=== PATIENT | male | born 1945 | race Caucasian/White ===

== ENCOUNTER 2019-04-20 13:26 | Inpatient (IN) | payer MEDICARE ==
[~2019-04-20 13:26] MED LIST: Aminocaproic Acid 5 GM/20 ML VIAL ONE; Calcium Chloride 1 GM/10 ML Abboject SYRINGE ONE; Cardioplegic Soln 1,000 ML BAG ONE; Esmolol 100 MG/10 ML VIAL ONE; Heparin 30,000 units/30 ml VIAL ONE; Heparin 5,000 UNITS/ML VIAL ONE; Iopamidol 370 76% 100 ML VIAL ONE; Iopamidol 370 76% 50 ML VIAL FS ONE; Lidocaine 2% PF 5 ML VIAL ONE; Magnesium Sulfate 1 GM/2 ML VIAL ONE; Norepinephrine 4 MG/4 ML VIAL ONE; Ondansetron PF 4 MG/2 ML Vial ONE; PHENYLEPHRINE-NS 100 MCG/ML 10 ML SYRINGE ONE; PROPOFOL 200 MG/20 ML VIAL ONE; Papaverine 60 MG/2 ML VIAL ONE; Potassium Chloride 60 MEQ/30 ML VIAL ONE; Protamine Sulfate 250 MG/25 ML VIAL ONE; Rocuronium Bromide 10 MG/ML (10ML VIAL) ONE; Sodium Bicarb 50 MEQ/50 ML Abboject 8.4% SYRINGE ONE; Thrombin 5000 UNITS/5 ML VIAL ONE; Vecuronium 10 MG VIAL ONE; ePHEDrine/0.9% NaCl/PF SYRINGE 50 mg/10 ml ONE
[2019-04-20 13:52] LABS: #Eosinphils 0.1 thou/uL (0.0-0.7); #Lymphocytes 2.2 thou/uL (1.20-3.40); #Monocytes 0.5 thou/uL (0.11-0.59); #Neutrophils 4.7 thou/uL (1.40-6.50); %Basophils 0.5 % (0.0-1.0); %Eosinophils 1.5 % (0.0-10.0); %Lymphocytes 29.2 % (21.0-51.0); %Neutrophils 61.9 % (42.0-75.0); Hemoglobin 17.1 g/dL (14.0-18.0); Mean Corpuscular HGB CONC 32.9 g/dL (32.0-36.0); Mean Corpuscular Hemoglobin 28.9 pg (27.0-31.0); Mean Corpuscular Volume 87.8 fL (78.0-98.0); Mean Platelet Volume 6.9 fL (7.4-10.4); Platelet Count 308 thou/uL (130-400); RBC Distribution Width 13.8 % (11.5-14.5); White Blood Cell (WBC) Count 7.5 thou/uL (4.8-10.8)
--- NOTE | 2019-04-20 14:12 | RAD ---
Portable chest: HISTORY: Chest pain COMPARISON: none FINDINGS: Lung grimes are clear. Heart and mediastinum appear unremarkable. Vascularity is normal. Visualized osseous structures unremarkable. IMPRESSION: No acute finding
[2019-04-20 14:14] LABS: ALT (SGPT) 25 U/L (8-55); AST (SGOT) 20 U/L (5-34); Albumin 4.4 g/dL (3.4-4.8); Alkaline Phosphatase 78 U/L (40-110); Anion Gap 12 mmol/L (10-20); BUN (Urea Nitrogen) 18 mg/dL (8.4-25.7); Bilirubin, Total 0.4 mg/dL (0.2-1.2); CK (CPK) 89 U/L (30-200); Calc. Creatinine Clearance 0 mL/min (70-130); Calcium 9.6 mg/dL (7.8-10.44); Carbon Dioxide 29 mmol/L (23-31); Chloride 102 mmol/L (98-107); Estimated GFR-MDRD 46; Globulin 2.7 g/dL (2.4-3.5); Glucose 167 mg/dL (83-110); Potassium 4.3 mmol/L (3.5-5.1); Protein, Total 7.1 g/dL (5.8-8.1); Sodium 139 mmol/L (136-145)
[2019-04-20 14:35] LABS: CKMB 4.5 ng/mL (0-6.6)
[2019-04-20] MEDS ORDERED: Heparin (Artline) 1,000 ML ONE (14:43)
[2019-04-20] MEDS ORDERED: Lidocaine 1% (PF) 30 ML VIAL ONE (14:47)
[2019-04-20] MEDS ORDERED: Heparin 10,000 UNITS/1 ML VIAL ONE (14:47)
[2019-04-20] MEDS ORDERED: Fentanyl 100 MCG/2 ML VIAL ONE ×2 (15:04→21:38)
[2019-04-20] MEDS ORDERED: Midazolam HCl 2 mg/2 ml Vial ONE ×3 (15:04→21:38)
--- NOTE | 2019-04-20 15:12 | HP ---
HISTORY OF PRESENT ILLNESS: Eliseo Hoew is a 73-year-old white male, who presents with chest pain. Approximately 9 years ago, he underwent stent placement at [facility]. He states he took Plavix for approximately 6 years after the stent was placed. He did have one episode of chest pain lasting 2 to 3 hours one week ago. Then, this morning at 10:00 a.m., approximately 4 hours and 40 minutes ago, he had onset of central chest pressure. He denies any shortness of breath, nausea, vomiting, or diaphoresis. He came to the emergency room, was given aspirin 324 mg, three sublingual nitroglycerins, and 4000 units of heparin. Initial EKG showed Q-wave in III and F with 0.[address] elevation. Repeat EKG when his pain somewhat worsened reveals 1.5 mm elevation in II, III, and aVF. PAST MEDICAL HISTORY: Hypertension, hypercholesterolemia. No history of diabetes. He is HIV positive, however, his family does not know. MEDICATIONS: He is unsure. He takes gabapentin, tramadol, meloxicam, aspirin 81 mg, blood pressure medicine and cholesterol medicine. ALLERGIES: NONE. OPERATIONS: None. SOCIAL HISTORY: He stopped smoking 30 years ago. He has a glass of wine 2 times per week. FAMILY HISTORY: Negative for myocardial infarction or CABG. His mother does have a pacemaker. REVIEW OF SYSTEMS: A 10-point review of systems is otherwise unremarkable. PHYSICAL EXAMINATION: VITAL SIGNS: Blood pressure 132/80, pulse of 90. HEENT: PERRL with bilateral ear creases. CHEST: Clear. CARDIAC: S1 and S2 normal without any S3, S4, or murmurs. Carotid upstrokes normal without bruits. ABDOMEN: Normal bowel sounds without tenderness, organomegaly, or masses. EXTREMITIES: Reveal no clubbing, cyanosis, or edema. NEUROLOGIC: Grossly intact. LABORATORY DATA: CBC is unremarkable. Sodium 139, potassium 4.3, chloride 102, carbon dioxide 29, BUN 18, creatinine 1.49, glucose 167. Troponin-I 0.172. IMPRESSION: 1. Inferior ST segment elevation myocardial infarction. 2. History of stent placement 9 years ago in [place]. He did not have any problems taking Plavix for 6 years with no gastrointestinal bleeding. 3. Hypertension. 4. Hypercholesterolemia. 5. Renal insufficiency. 6. Elevated blood sugar. 7. Human immunodeficiency virus positive. PLAN: Situation discussed with the patient and his sister. It is recommended that he undergo emergent cardiac catheterization. Risks have been discussed - , myocardial infarction, CVA, bleeding requiring transfusion, blood vessel injury with operative repair, kidney damage leading to dialysis, and allergic reaction to the dye. Additional risk with stent placement discussed including , myocardial infarction, emergent CABG, restenosis, stent thrombosis, vessel perforation, etc. He did not have problems with Plavix in the past and does not have any upcoming surgeries. He has never had a previous stroke, and overall, it is recommended that a drug-eluting stent will be placed if needed. Job ID: [id number] MTDD
[2019-04-20] MEDS ORDERED: Heparin 25,000 units/D5W 500 ML ONE (15:22)
[2019-04-20] MEDS ORDERED: Heparin (Artline) 500 ML ONE (15:22)
[2019-04-20] MEDS ORDERED: Nitroglycerin 50 MG/250 ML BOT 250 ML ONE (15:39)
[2019-04-20 15:58] LABS: Anion Gap 14 mmol/L (10-20); BUN (Urea Nitrogen) 18 mg/dL (8.4-25.7); Calc. Creatinine Clearance 0 mL/min (70-130); Calcium 9.4 mg/dL (7.8-10.44); Carbon Dioxide 26 mmol/L (23-31); Chloride 104 mmol/L (98-107); Estimated GFR-MDRD 53; Glucose 129 mg/dL (83-110); Sodium 140 mmol/L (136-145)
[2019-04-20] MEDS ORDERED: Communication Order-Pharmacy FS SCH (16:00)
[2019-04-20] MEDS ORDERED: Albumin 5% 500 ML ONE (16:21)
[2019-04-20] MEDS ORDERED: Fentanyl 250 MCG/5 ML VIAL ONE (16:51)
[2019-04-20] MEDS ORDERED: Dexmedetomidine 200 MCG/2 ML VIAL ONE (16:51)
[2019-04-20] MEDS ORDERED: CEFAZOLIN 2 GM in Premix Bag 1 BAG IVPB SCH (17:00)
[2019-04-20] MEDS ORDERED: Heparin 10,000 UNITS/1 ML VIAL 30,000 UNITS in Sodium Chloride 0.9% 1,000 ML FS SCH (17:00)
[2019-04-20] MEDS ORDERED: Ondansetron PF 4 MG/2 ML Vial IVP PRN (17:01)
[2019-04-20] MEDS ORDERED: Post-Op Insulin Drip Protocol IVPB ONE (17:01)
[2019-04-20] MEDS ORDERED: Nitroglycerin 50 MG/250 ML BOT 250 ML IVPB PRN (17:01)
[2019-04-20] MEDS ORDERED: Norepinephrine 8 MG/0.9% NS 250 ML IVPB PRN (17:01)
[2019-04-20] MEDS ORDERED: Mag-Al 1200 mg/1200 mg/30 ML UDCUP PO PRN (17:01)
[2019-04-20] MEDS ORDERED: Bisacodyl 10 MG SUPP PR PRN (17:01)
[2019-04-20] MEDS ORDERED: Bisacodyl 5 MG TAB PO PRN (17:01)
[2019-04-20] MEDS ORDERED: Fentanyl 100 MCG/2 ML VIAL SLOW IVP PRN (17:01)
[2019-04-20] MEDS ORDERED: Hetastarch 6% 500 ML 500 ML IVPB PRN (17:01)
[2019-04-20] MEDS ORDERED: Promethazine HCl 25 MG/ML VIAL IM PRN (17:01)
[2019-04-20] MEDS ORDERED: Guaifenesin DM 100-10/5 ML UDCUP PO PRN (17:01)
[2019-04-20] MEDS ORDERED: HYDROcodone/Acetaminophen 5/325 mg Tablet PO PRN (17:01)
[2019-04-20] MEDS ORDERED: Acetaminophen 325 MG TAB PO PRN (17:01)
[2019-04-20] MEDS ORDERED: niCARdipine 25 MG in Sodium Chloride 0.9% 250 ML 240 ML IVPB PRN (17:01)
[2019-04-20] MEDS ORDERED: hydrALAZINE 20 MG/ML VIAL SLOW IVP PRN (17:01)
[2019-04-20] MEDS ORDERED: HUMULIN R 100 UNITS in Sodium Chloride 0.9% 100 ML IVPB SCH (17:13)
[2019-04-20] MEDS ORDERED: Dextrose 5% in Water 1,000 ML IV PRN (17:13)
[2019-04-20] MEDS ORDERED: Insulin Regular 300 UNITS/3 ML VIAL SC PRN (17:13)
[2019-04-20] MEDS ORDERED: Dextrose 50% Abboject 50 ML SYRINGE SLOW IVP PRN (17:13)
--- NOTE | 2019-04-20 17:14 | CON ---
DATE OF CONSULTATION: 04/20/2019 REQUESTING PHYSICIAN: Dr. Drake. CHIEF COMPLAINT: Chest pain. HISTORY OF PRESENT ILLNESS: The patient is a 73-year-old man with known coronary disease having undergone previous stenting procedure about 9 years ago in [place]. He had done well until recently. About a week ago, he had an episode of chest pain that lasted 2 or 3 hours, and then this morning, he had another episode. It was not associated with shortness of breath, nausea, vomiting, or diaphoresis, but was of sufficient severity and lasted long that he decided to present to the emergency room. Here, he was found to have some minimal ST elevation in lead III and then when his pain worsened a bit, the ST elevation was a little bit more pronounced and present in leads II, III, and aVF. He was taken to the concrete mixing plant laborer urgently. He was found to have three-vessel coronary artery disease and included ostial and mid LAD lesions isolating a fairly large diagonal, a very high-grade ostial lesion in an obtuse marginal and a very high-grade very proximal lesion in his right coronary that was associated with filling defect suggestive of thrombus. His chest pain has since improved, but has not completely resolved. PAST MEDICAL HISTORY: Significant for hypertension, hypercholesterolemia, and HIV positivity. He reports that his viral load has been undetectable having been checked as recently as 2 weeks ago. MEDICATIONS: His current list of medications is incomplete. ALLERGIES: HE DENIES ANY MEDICAL ALLERGIES. SOCIAL HISTORY: He describes having smoked heavily, but quit 20 or 30 years ago. FAMILY HISTORY: Negative for coronary disease in either of his parents. REVIEW OF SYSTEMS: Positive for some blurry vision but no monocular symptoms consistent with amaurosis fugax. No transient speech, facial, or extremity symptoms consistent with TIAs. Negative for claudication. Negative for any shortness of breath. PHYSICAL EXAMINATION: GENERAL: He currently is in no distress. VITAL SIGNS: On presentation in the emergency room, his heart rate was 80 and blood pressure 167/95. His most recent vitals in the concrete mixing plant laborer were heart rate 74 and blood pressure 141/92. Intravenous nitroglycerin was being started. He is 5 feet 9 inches and weighs 183 pounds. HEENT: He has no xanthelasma. NECK: No JVD. No carotid bruits. CHEST: Clear to auscultation. CARDIAC: He has a regular rate and rhythm without any obvious murmur or gallop. ABDOMEN: Soft and nontender. He has a sheath in place in the right groin. EXTREMITIES: He has a palpable left femoral pulse, left dorsalis pedis pulse and right posterior tibial pulse. He has what appears to be plaque psoriasis overlying his left patella. He has no obvious varicosities. He has no clubbing, cyanosis, or edema. NEUROLOGIC: Grossly nonfocal. LABORATORY DATA: His white count is 7.5, hemoglobin 17.1, hematocrit of 51.8, and platelets 308,000. His electrolytes were normal. BUN was 18, creatinine 1.49, glucose 167. LFTs were normal. Troponin was 0.172. Albumin is 4.4, calcium 9.6. His EKG had a Q in lead III and some ST elevation in II, III and aVF. His chest x-ray showed very prominent pulmonary markings. No overt cardiomegaly. No obvious aortic knob calcification. His cardiac catheterization shows a right-dominant system with a three-vessel disease and LVEF of around 40% to 45%. LV pressure was 147/6 and an EDP of 12. Aortic pressure on pullback was 145/82 with a mean of 111. He has some mild distal left main disease about 30% lesion. He has about 60% lesion in the LAD proximal to the first septal technical sales associate, diffuse irregularity in the midportion. There is a large diagonal that wraps around toward the apex and the LAD has serial lesions just beyond that with slow filling in the segment that leads to the apex. He has a modest ostial lesion in a small ramus vessel, a very small OM1 and a subtotal lesion in the OM2 with a large OM3. The stent in the circumflex system crosses the origin of the OM2, but it is widely patent with no compromise of that OM3. He has thrombus associated with proximal right coronary lesion that in essence makes that a subtotal lesion that is about an 80% or 90% lesion in the distal right coronary with irregularity without significant luminal compromise of a large PDA. IMPRESSION AND RECOMMENDATION: ST-elevation myocardial infarction with improved but ongoing chest pain with three-vessel disease that includes a subtotal circumflex system lesion and a subtotal lesion of the proximal RCA associated with thrombus. Hemodynamically, the patient is stable. We will plan on urgent revascularization. Job ID: [id number]
[2019-04-20] MEDS ORDERED: Phenylephrine HCL 10 MG/ML VIAL ONE (19:26)
[2019-04-20] MEDS ORDERED: PHENYLEPHRINE-NS 100 MCG/ML 10 ML SYRINGE ONE (19:26)
[2019-04-20] MEDS ORDERED: CEFAZOLIN 1 GM VIAL ONE (20:25)
[2019-04-20] MEDS ORDERED: Rocuronium Bromide 50 MG/5 ML VIAL ONE (21:38)
[2019-04-20 23:37] LABS: #Lymphocytes 1.1 thou/uL (1.20-3.40); #Monocytes 0.6 thou/uL (0.11-0.59); #Neutrophils 12.1 thou/uL (1.40-6.50); %Basophils 0.3 % (0.0-1.0); %Eosinophils 0.3 % (0.0-10.0); %Lymphocytes 7.8 % (21.0-51.0); %Neutrophils 87.6 % (42.0-75.0); Hemoglobin 15.6 g/dL (14.0-18.0); Mean Corpuscular HGB CONC 32.6 g/dL (32.0-36.0); Mean Corpuscular Hemoglobin 28.8 pg (27.0-31.0); Mean Corpuscular Volume 88.3 fL (78.0-98.0); Platelet Count 188 thou/uL (130-400); RBC Distribution Width 13.8 % (11.5-14.5); Red Blood Cell (RBC) Count 5.42 mill/uL (4.70-6.10); White Blood Cell (WBC) Count 13.8 thou/uL (4.8-10.8)
[2019-04-20 23:42] LABS: INR-International Normal Ratio 1.2; PTT 28.8 SEC (22.9-36.1)
[2019-04-20 23:46] LABS: Actual Bicarbonate (HCO3a) 19.4 mEq/L (22-28); CO2 Tension 34.6 mmHg (35.0-45.0); Calcium, Ionized 1.19 mmol/L (1.12-1.30); Carboxyhemoglobin (COHb) 1.2 gm% (0.0-3.0); Hemoglobin (Hb) 15.9 g/dL (14.0-18.0); O2 Tension (PaO2) 214.6 mmHg (> 70.0); Potassium - ABG Lab 3.88 mmol/L (3.70-5.30); pH, Arterial 7.37 (7.35-7.45)
[2019-04-20 23:48] LABS: Anion Gap 9 mmol/L (10-20); BUN (Urea Nitrogen) 14 mg/dL (8.4-25.7); Calc. Creatinine Clearance 0 mL/min (70-130); Calcium 8.7 mg/dL (7.8-10.44); Carbon Dioxide 22 mmol/L (23-31); Chloride 113 mmol/L (98-107); Estimated GFR-MDRD 72; Glucose 195 mg/dL (83-110); Potassium 3.8 mmol/L (3.5-5.1); Sodium 140 mmol/L (136-145)
[2019-04-20 23:49] LABS: Puncture Site LINE
[2019-04-20] MEDS: Sodium Chloride 0.9% 1,000 ML IV SCH (23:49)
[2019-04-20] MEDS: Atorvastatin Calcium 40 MG TAB PO SCH (23:50)
[2019-04-20] MEDS: Gabapentin 300 MG CAP PO SCH (23:50)
[2019-04-20] MEDS: Docusate 100 MG CAP PO SCH (23:50)
--- NOTE | 2019-04-21 00:14 | RAD ---
RADIOGRAPH CHEST 1 VIEW: DATE: 04/20/2019 TIME: 11:05 PM HISTORY: 73-year-old male status post intubation COMPARISON: 04/20/2019 1:59 PM FINDINGS: Supine positioning makes this insensitive for pneumothorax detection. New sternotomy wires. New left lateral chest tube ascending from left base with distal tip near apex. New left subclavian central venous catheter with distal tip overlying SVC. New endotracheal tube at m id thoracic trachea. Double new mediastinal tubes. New left pleural effusion and dense opacification of left lower lobe. IMPRESSION: 1) very recently status post open heart surgery with multiple life support lines. 2) left lower lobe atelectasis and left pleural effusion.
--- NOTE | 2019-04-21 00:40 | OP ---
DATE OF PROCEDURE: 04/20/2019 PROCEDURE PERFORMED: Emergent coronary artery bypass grafting x4 with left internal mammary artery to the distal LAD and reverse greater saphenous vein grafts from the aorta to the diagonal to the second obtuse marginal into the PDA. PREOPERATIVE DIAGNOSES: Coronary artery disease with inferior ST-elevation myocardial infarction and ongoing chest pain. POSTOPERATIVE DIAGNOSES: Coronary artery disease with inferior ST-elevation myocardial infarction and ongoing chest pain. ANESTHESIA: General endotracheal anesthesia. INDICATIONS: The patient is a 73-year-old male with known coronary artery disease, having undergone circumflex system stenting about 9 years ago. He had a bout of angina about a week ago and then today had severe protracted chest pain that waxed and waned in intensity even after arrival to the hospital. He was taken emergently to the prosthetic lab technician and found to have severe three-vessel coronary artery disease including subtotal lesion in the very proximal right coronary associated with filling defect consistent with thrombus. He is now taken to the operating room for revascularization. FINDINGS: Pump time 105 minutes. Cross-clamp time 56 minutes. Good quality NADIR and saphenous vein. The LAD was about a 1.5 to 2 mm vessel. The diagonal was about a 2 mm vessel. The second obtuse marginal about 2 mm and the PDA about 1.5 to 2 mm. The pericardium was closed. DESCRIPTION OF PROCEDURE: After informed consent was obtained, the patient was taken to the operating room, placed in supine position on the operating table. After the induction of general anesthesia, the patient's left lower extremity greater saphenous vein was ultrasonographically mapped and marked. His left upper chest was prepped and draped in sterile fashion and he was placed in Trendelenburg. A triple-lumen central line kit was used to place a left subclavian central line by the Seldinger technique. All 3 ports easily aspirated and flushed. The line was secured to the skin with suture. The dressing on the right femoral sheath was removed. That area was prepped and the line secured with suture. The patient's torso groins and lower extremities were then prepped and draped in sterile fashion. The greater saphenous vein was exposed just above the left knee using a scalpel and electrocautery. It was then endoscopically harvested from the groin to the mid calf using small stab incisions for the proximal and distal ligation and division. The vein was prepared for use as a graft and the port site was closed in layers of subcutaneous and subcuticular Vicryl. A median sternotomy was performed. The left internal mammary artery was harvested as a skeletonized in-situ graft from the level of the xiphoid to just beyond the subclavian vein through an extrapleural exposure. The patient was heparinized. The mammary was ligated and divided distally. There was good flow through the mammary that was instilled intraluminally with papaverine solution and dilated nicely. The medial reflections of the pleura along the mediastinum were developed. A rent in the pleura near the apex was made during the course of this. The mammary bed was inspected for hemostasis. The NADIR retractor was replaced with a Eller retractor. The pericardium was opened and marsupialized. The aorta was palpated and was soft. A double concentric pursestring of 2-0 Ethibond was placed in the ascending aorta just beyond the pericardial reflection and a single pursestring was placed in the right atrial appendage. Aortic and venous cannulae were inserted and secured by their pursestrings. Cardiopulmonary bypass was instituted and the patient was systemically cooled. The heart was examined and the vessel to be bypassed were identified. A longitudinal slit was made in the pericardium anterior to the left phrenic nerve. There was a mammary could be passed. The plane between the aorta and the pulmonary artery was developed. An aortic cross-clamp was applied and cardioplegia was administered through an aortic root needle. When arrest have been achieved, attention was turned to the distal right coronary system. The distal right coronary and the proximal PDA had hard palpable plaquing in it. The PDA was exposed and opened just beyond that plaque. A saphenous vein was reversed and anastomosed there end-to-side with running 6-0 Prolene suture. The anastomosis was tested by flushing cold cardioplegia down the graft. Attention was then turned to the second obtuse marginal. Hard plaque was easily appreciable at its origin from the circumflex at the groove. It was opened just beyond that, and grafted in a similar fashion. The diagonal just proximal to the level of the hard plaque at the junction of the middle and distal thirds of the LAD was then opened and grafted in a similar fashion. The LAD was then opened distally and the mammary anastomosed with running 7-0 Prolene. The mammary was tacked to the epicardium. The aortic cross-clamp was replaced with a partial occluding clamp and aortotomy was made in ascending aorta with a scalpel and punch incorporating the root needle site into what would be the most proximal aortotomy. The PDA graft was brought along the right side of the heart and anastomosed to that proximal aortotomy. The diagonal and OM grafts were brought along the left side of the heart and anastomosed to the middle and distal aortotomies respectively. The partial occluding clamp was removed and the vein grafts were de-aired. The bulldogs were removed from them. The anastomoses were inspected for hemostasis. The proximal anastomoses were marked with small hemoclips. Left pleural and posterior pericardial drains were brought out through separate incisions and secured with suture. Right atrial and right ventricular temporary epicardial pacing wires were placed. The patient was then easily from cardiopulmonary bypass. The aortic and venous cannulae were removed and the pursestring secured. Protamine was administered. When hemostasis was adequate, an anterior mediastinal drain was placed. The pericardium was easily closed over with running Vicryl. The cut surfaces of the sternum were treated with platelet rich GPS and vancomycin paste. The sternum was then reapproximated with #7 stainless steel wires. The soft tissue was irrigated and treated with poor GPS. The fascia was closed over the wires with a running #1 Vicryl. The subcutaneous tissue was reapproximated with a running 2-0 Vicryl and the skin was closed with a running 3-0 Vicryl subcuticular suture. The wounds were dressed and the patient was taken to the intensive care unit in a stable condition. Job ID: [id number]
[2019-04-21] MEDS: Potassium Chloride 20 MEQ/100 ML PREMIX BAG IVPB PRN (01:15)
[2019-04-21] MEDS: Sodium Chloride 0.9% 1,000 ML IV SCH ×3 (01:29→17:02)
[2019-04-21] MEDS: Morphine 2 MG/ML SYRINGE SLOW IVP PRN ×3 (01:51→04:22)
[2019-04-21] MEDS: Fentanyl 100 MCG/2 ML VIAL SLOW IVP PRN ×3 (03:17→13:03)
[2019-04-21 04:36] LABS: Actual Bicarbonate (HCO3a) 21.1 mEq/L (22-28); Base Excess (BEa) -2.6 mEq/L (-2.0 to +3.0); CO2 Tension 33.7 mmHg (35.0-45.0); Calcium, Ionized 1.14 mmol/L (1.12-1.30); Carboxyhemoglobin (COHb) 1.2 gm% (0.0-3.0); Hemoglobin (Hb) 14.8 g/dL (14.0-18.0); O2 Tension (PaO2) 132.7 mmHg (> 70.0); Potassium - ABG Lab 3.91 mmol/L (3.70-5.30); pH, Arterial 7.41 (7.35-7.45)
[2019-04-21 04:38] LABS: ALV-art Gradient 110.375 (0-20); Puncture Site LINE
[2019-04-21 05:25] LABS: Anion Gap 12 mmol/L (10-20); BUN (Urea Nitrogen) 16 mg/dL (8.4-25.7); Calc. Creatinine Clearance 71 mL/min (70-130); Calcium 8.3 mg/dL (7.8-10.44); Carbon Dioxide 22 mmol/L (23-31); Chloride 113 mmol/L (98-107); Estimated GFR-MDRD 68; Glucose 160 mg/dL (83-110); Potassium 4.1 mmol/L (3.5-5.1); Sodium 143 mmol/L (136-145)
[2019-04-21 05:26] LABS: Band 4 % (5-11); Hemoglobin 14.3 g/dL (14.0-18.0); Lymphocytes 1 % (21-51); MDiff Complete? YES; Mean Corpuscular HGB CONC 31.7 g/dL (32.0-36.0); Mean Corpuscular Hemoglobin 28.1 pg (27.0-31.0); Mean Corpuscular Volume 88.7 fL (78.0-98.0); Mean Platelet Volume 7.7 fL (7.4-10.4); Neutrophil 95 % (42-75); Platelet Count 254 thou/uL (130-400); Platelet Morphology Comment Appears Adequate; RBC Distribution Width 13.7 % (11.5-14.5); RBC Morphology Normal; Red Blood Cell (RBC) Count 5.07 mill/uL (4.70-6.10); White Blood Cell (WBC) Count 20.5 thou/uL (4.8-10.8)
[2019-04-21] MEDS: HYDROcodone/Acetaminophen 5/325 mg Tablet PO PRN (09:00)
[2019-04-21] MEDS: Gabapentin 300 MG CAP PO SCH ×3 (09:01→21:24)
--- NOTE | 2019-04-21 09:02 | RAD ---
CHEST 1 VIEW: INDICATION: Status post open heart surgery. COMPARISON: Prior exam dated 04/20/2019. FINDINGS: The patient has been extubated. Left subclavian central venous catheter is unchanged. Midline media stinal drain and left-sided thoracostomy tube is unchanged. Left-sided pleural parenchymal opacity p ersists. Cardiomegaly is stable. Right lung is clear. No pneumothorax is evident. IMPRESSION: Interval extubation. Otherwise, stable exam. POS: BH
[2019-04-21 09:50] LABS: Troponin I 29.463 ng/mL (< 0.028)
[2019-04-21] MEDS: Meloxicam 15 MG TAB PO SCH (10:09)
[2019-04-21] MEDS: Ezetimibe 10 MG TAB PO SCH (10:10)
[2019-04-21] MEDS: Aspirin Chewable 81 MG TAB PO SCH (10:10)
[2019-04-21] MEDS: Docusate 100 MG CAP PO SCH ×2 (10:10→21:23)
[2019-04-21] MEDS ORDERED: Furosemide 40 MG/4 ML VIAL SLOW IVP SCH (16:00)
[2019-04-21] MEDS: Carvedilol 3.125 MG TAB PO SCH (16:01)
[2019-04-21] MEDS ORDERED: ALPRAZolam 0.5 MG TAB PO PRN (18:43)
[2019-04-21] MEDS ORDERED: Prevnar 13-Val Conj/PF 0.5 ML SYRINGE IM ONE (21:00)
[2019-04-21] MEDS: Atorvastatin Calcium 40 MG TAB PO SCH (21:23)
[2019-04-21] MEDS ORDERED: Insulin Glargine 9 UNITS in Pre-Filled Syringe 1 EACH SC SCH (23:30)
[2019-04-22 04:17] LABS: #Eosinphils 0.1 thou/uL (0.0-0.7); #Lymphocytes 1.5 thou/uL (1.20-3.40); #Monocytes 0.8 thou/uL (0.11-0.59); #Neutrophils 9.2 thou/uL (1.40-6.50); %Basophils 0.1 % (0.0-1.0); %Lymphocytes 12.9 % (21.0-51.0); %Monocytes 7.2 % (0.0-10.0); %Neutrophils 78.8 % (42.0-75.0); Hemoglobin 12.1 g/dL (14.0-18.0); Mean Corpuscular HGB CONC 32.1 g/dL (32.0-36.0); Mean Corpuscular Hemoglobin 28.5 pg (27.0-31.0); Mean Corpuscular Volume 88.8 fL (78.0-98.0); Mean Platelet Volume 7.5 fL (7.4-10.4); Platelet Count 179 thou/uL (130-400); RBC Distribution Width 14.1 % (11.5-14.5); Red Blood Cell (RBC) Count 4.26 mill/uL (4.70-6.10); White Blood Cell (WBC) Count 11.6 thou/uL (4.8-10.8)
[2019-04-22] MEDS: Sodium Chloride 0.9% 1,000 ML IV SCH ×2 (04:24→08:59)
[2019-04-22 04:38] LABS: Anion Gap 11 mmol/L (10-20); BUN (Urea Nitrogen) 20 mg/dL (8.4-25.7); Calc. Creatinine Clearance 69 mL/min (70-130); Calcium 7.9 mg/dL (7.8-10.44); Carbon Dioxide 26 mmol/L (23-31); Cardiac Risk 5.1 (Less than 4.5); Chloride 103 mmol/L (98-107); Cholesterol 91 mg/dl (< 200 Desired); Estimated GFR-MDRD 66; Glucose 122 mg/dL (83-110); HDL Cholesterol 18 mg/dL (>60 Neg Risk); LDL Cholesterol, Calculated 38 mg/dL; Potassium 3.7 mmol/L (3.5-5.1); Sodium 136 mmol/L (136-145); Triglycerides 176 mg/dL (Less than 150)
[2019-04-22 06:22] VITALS: BMI 25.5
[2019-04-22] MEDS: HYDROcodone/Acetaminophen 5/325 mg Tablet PO PRN ×2 (06:25→17:35)
--- NOTE | 2019-04-22 08:04 | RAD ---
CHEST 1 VIEW: INDICATION: Status post open heart surgery. COMPARISON: Prior exam 04/21/2019. IMPRESSION: Left subclavian central venous catheter and left-sided thoracostomy tube is unchanged. Midline media stinal drains are unchanged. Mild cardiomegaly persists. Mild pulmonary vascular congestion persist s. Low lung volumes and bibasilar atelectasis persist. Small left pleural effusion persists. No pn eumothorax is demonstrated. POS: BH
[2019-04-22] MEDS: Ezetimibe 10 MG TAB PO SCH (08:58)
[2019-04-22] MEDS: Docusate 100 MG CAP PO SCH ×2 (08:58→20:29)
[2019-04-22] MEDS: Aspirin Chewable 81 MG TAB PO SCH (08:58)
[2019-04-22] MEDS: Gabapentin 300 MG CAP PO SCH ×3 (08:58→20:29)
[2019-04-22] MEDS: Carvedilol 3.125 MG TAB PO SCH (08:58)
[2019-04-22] MEDS: Meloxicam 15 MG TAB PO SCH (08:59)
[2019-04-22] MEDS: Potassium Chloride 20 MEQ/100 ML PREMIX BAG IVPB PRN (09:03)
--- NOTE | 2019-04-22 09:56 | EKG ---
Test Reason : STAT Blood Pressure : / mmHG Vent. Rate : 083 BPM Atrial Rate : 044 BPM P-R Int : 000 ms QRS Dur : 078 ms QT Int : 366 ms P-R-T Axes : 000 019 034 degrees QTc Int : 430 ms Accelerated Junctional rhythm Inferior infarct , age undetermined Abnormal ECG No previous ECGs available Confirmed by DR. Lizz MADISON MD ([id number]) on 04/22/2019 9:56:00 AM Referred By: PATO Confirmed By:DR. Lizz MADISON MD
--- NOTE | 2019-04-22 11:06 | PDOC.CPN ---
- Subjective Date: 04/22/19 Time: 11:00 Interval history: Doing well. Still very sore but better than yesterday when he stated he could not even move. - Review of Systems General: denies: fever/chills, weight/appetite/sleep changes, night sweats, fatigue Respiratory: reports: cough. denies: congestion, shortness of breath, exercise intolerance Cardiovascular: denies: chest pain, palpitation, edema, paroxysmal nocturnal dyspnea, orthopnea Gastrointestinal: denies: nausea, vomiting, diarrhea, constipation, abd pain, GI bleeding Musculoskeletal: reports: pain. denies: tenderness, stiffness, swelling, arthritis/arthralgias Neurological: denies: numbness, syncope, seizure, weakness - Objective Allergies/Adverse Reactions: Allergies Allergy/AdvReac Type Severity Reaction Status Date / Time No Known Allergies Allergy Unverified 04/20/19 15:57 Visit Medications: Current Medications Acetaminophen (Tylenol) 650 mg PO Q6H PRN PRN Reason: Headache/Fever Or Mild Pain Hydrocodone Bitart/Acetaminophen ([place] 5/325) 1 tab PO Q4H PRN PRN Reason: Moderate Pain (4-6) Last Admin: 04/22/19 01:35 Dose: 1 tab Hydrocodone Bitart/Acetaminophen ([place] 5/325) 2 tab PO Q4H PRN PRN Reason: Severe Pain (7-10) Last Admin: 04/22/19 06:25 Dose: 2 tab Al Hydroxide/Mg Hydroxide (Maalox) 30 ml PO Q4H PRN PRN Reason: Indigestion Albuterol/Ipratropium (Duoneb) 3 ml NEB [id number] PRN PRN Reason: SHORTNESS OF BREATH Alprazolam (Xanax) 0.5 mg PO Q8H PRN PRN Reason: Anxiety Aspirin (Aspirin Chewable) 81 mg PO DAILY [facility] Last Admin: 04/22/19 08:58 Dose: 81 mg Atorvastatin Calcium (Lipitor) 40 mg PO HS [facility] Last Admin: 04/21/19 21:23 Dose: 40 mg Bisacodyl (Dulcolax) 10 mg PO Q12H PRN PRN Reason: Constipation Bisacodyl (Dulcolax) 10 mg MS Q12H PRN PRN Reason: Constipation Carvedilol (Coreg) 3.125 mg PO BID-[facility] Last Admin: 04/22/19 08:58 Dose: 3.125 mg Dextrose/Water (Dextrose 50%) 25 gm SLOW IVP PRN PRN PRN Reason: PER HYPOGLYCEMIC PROTOCOL Docusate Sodium (Colace) 100 mg PO BID [facility] Last Admin: 04/22/19 08:58 Dose: 100 mg Ezetimibe (Zetia) 10 mg PO DAILY [facility] Last Admin: 04/22/19 08:58 Dose: 10 mg Fentanyl (Sublimaze) 25 mcg SLOW IVP Q2H PRN PRN Reason: Moderate Pain (4-6) Stop: 04/22/19 17:01 Fentanyl (Sublimaze) 50 mcg SLOW IVP Q2H PRN PRN Reason: Severe Pain (7-10) Stop: 04/22/19 17:01 Last Admin: 04/21/19 13:03 Dose: 50 mcg Gabapentin (Neurontin) 600 mg PO TID [facility] Last Admin: 04/22/19 08:58 Dose: 600 mg Glucagon (Glucagon) 1 mg SC PRN PRN PRN Reason: PER HYPOGLYCEMIC PROTOCOL Guaifenesin/Dextromethorphan (Robitussin Dm) 15 ml PO Q4H PRN PRN Reason: Cough Hydralazine HCl (Apresoline) 10 mg SLOW IVP Q6H PRN PRN Reason: To Maintain SBP< 140mmHG Cefazolin Sodium/Dextrose 2 gm (/ Device) 50 mls @ 100 mls/hr IVPB ONCALL-OR [facility] Heparin Sodium (Porcine) 30, (000 units/ Sodium Chloride) 1,003 mls @ 0 mls/hr FS WILLCALL [facility] Norepinephrine Bitartrate (Levophed) 250 mls @ 0 mls/hr IVPB PRN PRN; Protocol PRN Reason: To maintain SBP > 90 mmHG Last Admin: 04/21/19 01:39 Dose: 250 mls Nicardipine HCl 25 mg/ Sodium (Chloride) 250 mls @ 0 mls/hr IVPB INF PRN; Protocol PRN Reason: To Maintain SBP< 140mmHG Nitroglycerin/Dextrose (Nitroglycerin 50 Mg/250 Ml Bot) 250 mls @ 0 mls/hr IVPB PRN PRN; Protocol PRN Reason: To Maintain SBP< 140mmHG Sodium Chloride (Normal Saline 0.9%) 1,000 mls @ 125 mls/hr IV .Q8H [facility] Last Admin: 04/22/19 08:59 Dose: Not Given Insulin Human Regular 100 (units/ Sodium Chloride) 101 mls @ 0 mls/hr IVPB INF DAVI; Protocol Last Admin: 04/20/19 23:56 Dose: 101 mls Dextrose/Water (D5w) 1,000 mls @ 0 mls/hr IV INF PRN PRN Reason: PRN HYPOGLYCEMIC PROTOCOL Insulin Human Regular (Humulin R) 0 units SC Q4H PRN; Protocol PRN Reason: POST OP SLIDING SCALE Meloxicam (Mobic) 15 mg PO DAILY [facility] Last Admin: 04/22/19 08:59 Dose: 15 mg Morphine Sulfate (Morphine) 2 mg SLOW IVP Q15MIN PRN PRN Reason: Severe Pain (7-10) Last Admin: 04/21/19 04:22 Dose: 2 mg Ondansetron HCl (Zofran) 4 mg IVP Q6H PRN PRN Reason: Nausea/Vomiting Pantoprazole Sodium (Protonix) 40 mg PO DAILY [facility] Last Admin: 04/22/19 08:58 Dose: 40 mg Potassium Chloride (Kcl) 20 meq IVPB PRN PRN PRN Reason: K level </= 4.0 Last Admin: 04/22/19 09:03 Dose: 20 meq Promethazine HCl (Phenergan) 6.25 mg IM Q4H PRN PRN Reason: Nausea/Vomiting Sodium Chloride (Flush - Normal Saline) 10 ml IVF Q12HR [facility] Last Admin: 04/22/19 08:59 Dose: 10 ml Vital Signs & Weight: Vital Signs Temp Pulse Ox 04/22/19 08:00 98.7 F 94 L 04/22/19 03:00 98.6 F 04/22/19 00:00 99.5 F Weight 172 lb 6.424 oz - Physical Exam General: alert & oriented x3 HEENT: mucus membranes moist Neck: supple neck Cardiac: regular rate and rhythm Lungs: clear to auscultation Neuro: grossly intact Abdomen: active bowel sounds, soft, non-tender Extremities: 1+ LE edema Skin: clear Musculoskeletal: no pain - Labs Result Diagrams: 04/22/19 03:43 04/22/19 03:43 Troponin/CKMB CK-MB (CK-2) 4.5 ng/mL (0-6.6) 04/20/19 13:42 Troponin I 29.463 ng/mL (< 0.028) H* 04/21/19 09:03 - Telemetry Sinus rhythms and dysrhythmias: sinus rhythm - Assessment/Plan Assessment/Plan: 1. Inferior STEMI 2. S/P Emergent CABG 3. LCx stent 9 yrs ago 4. HTN 5. HLP 6. HIV positive PLAN: - Aspirin and Statin for life - Agree with up titrating coreg. - Add ACEi in next 24 to 48 hrs if BP allows. - Increase PT as tolerated.
[2019-04-22] MEDS ORDERED: Furosemide 20 MG TAB PO SCH (14:00)
[2019-04-22] MEDS ORDERED: Bisacodyl 5 MG TAB PO PRN (14:33)
[2019-04-22] MEDS ORDERED: Mag-Al 1200 mg/1200 mg/30 ML UDCUP PO PRN (14:33)
[2019-04-22] MEDS ORDERED: Bisacodyl 10 MG SUPP PR PRN (14:33)
[2019-04-22] MEDS ORDERED: diphenhydrAMINE 25 MG CAP PO PRN (14:33)
[2019-04-22] MEDS ORDERED: Zolpidem Tartrate 5 MG TAB PO PRN (14:33)
[2019-04-22] MEDS ORDERED: Guaifenesin DM 100-10/5 ML UDCUP PO PRN (14:33)
[2019-04-22] MEDS ORDERED: Artificial Tears 18 DROP/0.9 ML EA EYE PRN (14:33)
[2019-04-22] MEDS ORDERED: Mineral Oil ENEMA PR PRN (14:33)
[2019-04-22] MEDS: Furosemide 40 MG TAB PO SCH (15:04)
[2019-04-22] MEDS: Carvedilol 6.25 MG TAB PO SCH (17:37)
[2019-04-22] MEDS: Atorvastatin Calcium 40 MG TAB PO SCH (20:29)
[2019-04-23 03:53] LABS: #Eosinphils 0.1 thou/uL (0.0-0.7); #Monocytes 0.9 thou/uL (0.11-0.59); #Neutrophils 9.1 thou/uL (1.40-6.50); %Basophils 0.1 % (0.0-1.0); %Eosinophils 0.8 % (0.0-10.0); %Lymphocytes 16.4 % (21.0-51.0); %Neutrophils 75.6 % (42.0-75.0); Hemoglobin 12.5 g/dL (14.0-18.0); Mean Corpuscular HGB CONC 32.7 g/dL (32.0-36.0); Mean Corpuscular Hemoglobin 28.8 pg (27.0-31.0); Mean Corpuscular Volume 88.3 fL (78.0-98.0); Mean Platelet Volume 7.4 fL (7.4-10.4); Platelet Count 172 thou/uL (130-400); Red Blood Cell (RBC) Count 4.35 mill/uL (4.70-6.10)
[2019-04-23 04:09] LABS: Anion Gap 10 mmol/L (10-20); BUN (Urea Nitrogen) 26 mg/dL (8.4-25.7); Calc. Creatinine Clearance 68 mL/min (70-130); Calcium 8.2 mg/dL (7.8-10.44); Carbon Dioxide 30 mmol/L (23-31); Chloride 100 mmol/L (98-107); Estimated GFR-MDRD 66; Glucose 127 mg/dL (83-110); Potassium 3.5 mmol/L (3.5-5.1); Sodium 136 mmol/L (136-145)
[2019-04-23] MEDS: HYDROcodone/Acetaminophen 5/325 mg Tablet PO PRN ×2 (06:24→11:58)
--- NOTE | 2019-04-23 09:53 | RAD ---
PORTABLE CHEST: HISTORY: Post sternotomy/CABG procedure. COMPARISON: 04/22/2019. FINDINGS: Left basilar atelectasis and/or infiltrate obscures the CP angle. There is a left chest tube. Lungs appear well aerated and otherwise clear. Central line is unchanged. IMPRESSION: Stable findings when compared to 04/22/2019. POS: OFF
[2019-04-23] MEDS: Gabapentin 300 MG CAP PO SCH ×3 (10:07→20:45)
[2019-04-23] MEDS: Ezetimibe 10 MG TAB PO SCH (10:07)
[2019-04-23] MEDS: Aspirin Chewable 81 MG TAB PO SCH (10:08)
[2019-04-23] MEDS: Furosemide 40 MG TAB PO SCH ×2 (10:08→14:51)
[2019-04-23] MEDS: Docusate 100 MG CAP PO SCH ×2 (10:08→20:45)
[2019-04-23] MEDS: Meloxicam 15 MG TAB PO SCH (10:08)
[2019-04-23] MEDS: Carvedilol 6.25 MG TAB PO SCH ×2 (10:08→17:56)
--- NOTE | 2019-04-23 16:10 | PDOC.CPN ---
- Subjective Date: 04/23/19 Time: 17:45 Interval history: He is doing well. Chest tubes still in . No BM's but passing gas. - Review of Systems General: denies: fever/chills, weight/appetite/sleep changes, night sweats, fatigue Respiratory: denies: cough, congestion, shortness of breath, exercise intolerance Cardiovascular: reports: edema. denies: chest pain, palpitation, paroxysmal nocturnal dyspnea, orthopnea Gastrointestinal: denies: nausea, vomiting, diarrhea, constipation, abd pain, GI bleeding Musculoskeletal: reports: pain. denies: tenderness, stiffness, swelling, arthritis/arthralgias Neurological: denies: numbness, syncope, seizure, weakness - Objective Allergies/Adverse Reactions: Allergies Allergy/AdvReac Type Severity Reaction Status Date / Time No Known Allergies Allergy Unverified 04/20/19 15:57 Visit Medications: Current Medications Hydrocodone Bitart/Acetaminophen ([place] 5/325) 1 tab PO Q4H PRN PRN Reason: PAIN SCALE 1-5 Last Admin: 04/23/19 11:58 Dose: 1 tab Hydrocodone Bitart/Acetaminophen ([place] 5/325) 2 tab PO Q4H PRN PRN Reason: PAIN SCALE 6-10 Last Admin: 04/22/19 17:35 Dose: 2 tab Al Hydroxide/Mg Hydroxide (Maalox) 30 ml PO Q4H PRN PRN Reason: Indigestion Al Hydroxide/Mg Hydroxide (Maalox) 30 ml PO Q4H PRN PRN Reason: Indigestion Albuterol/Ipratropium (Duoneb) 3 ml NEB [id number] PRN PRN Reason: SHORTNESS OF BREATH Alprazolam (Xanax) 0.5 mg PO Q8H PRN PRN Reason: Anxiety Artificial Tears (Tears Naturale) 0 drop EA EYE PRN PRN PRN Reason: Dry Eyes Aspirin (Aspirin Chewable) 81 mg PO DAILY [facility] Last Admin: 04/23/19 10:08 Dose: 81 mg Atorvastatin Calcium (Lipitor) 40 mg PO HS [facility] Last Admin: 04/22/19 20:29 Dose: 40 mg Bisacodyl (Dulcolax) 10 mg PO Q12H PRN PRN Reason: Constipation Bisacodyl (Dulcolax) 10 mg MA Q12H PRN PRN Reason: Constipation Bisacodyl (Dulcolax) 10 mg PO Q12H PRN PRN Reason: Constipation Bisacodyl (Dulcolax) 10 mg MA Q12H PRN PRN Reason: Constipation Carvedilol (Coreg) 6.25 mg PO BID[facility] Last Admin: 04/23/19 10:08 Dose: 6.25 mg Diphenhydramine HCl (Benadryl) 25 mg PO Q6H PRN PRN Reason: Itching & Insomnia or Piotr Sammy Docusate Sodium (Colace) 100 mg PO BID [facility] Last Admin: 04/23/19 10:08 Dose: 100 mg Ezetimibe (Zetia) 10 mg PO DAILY [facility] Last Admin: 04/23/19 10:07 Dose: 10 mg Furosemide (Lasix) 40 mg PO 0900,1400 [facility] Stop: 04/24/19 09:01 Last Admin: 04/23/19 14:51 Dose: 40 mg Gabapentin (Neurontin) 600 mg PO TID [facility] Last Admin: 04/23/19 14:51 Dose: 600 mg Guaifenesin/Dextromethorphan (Robitussin Dm) 15 ml PO Q4H PRN PRN Reason: Cough Guaifenesin/Dextromethorphan (Robitussin Dm) 15 ml PO Q4H PRN PRN Reason: Cough Meloxicam (Mobic) 15 mg PO DAILY [facility] Last Admin: 04/23/19 10:08 Dose: 15 mg Mineral Oil (Fleet Mineral Oil) 133 ml MA DAILYPRN PRN PRN Reason: Constipation Ondansetron HCl (Zofran) 4 mg IVP Q6H PRN PRN Reason: Nausea/Vomiting Pantoprazole Sodium (Protonix) 40 mg PO DAILY [facility] Last Admin: 04/23/19 10:08 Dose: 40 mg Sodium Chloride (Flush - Normal Saline) 10 ml IVF Q12HR [facility] Last Admin: 04/23/19 10:09 Dose: 10 ml Zolpidem Tartrate (Ambien) 5 mg PO HSPRN PRN PRN Reason: Insomnia Vital Signs & Weight: Vital Signs Temp Pulse Pulse Resp BP BP BP 04/23/19 13:29 87 99/59 L 04/23/19 11:37 105 H 174/91 H 04/23/19 11:25 98.1 F 104 H 20 107/76 04/23/19 10:08 150/92 H 04/23/19 07:40 98.3 F 86 18 130/78 04/23/19 07:30 Pulse Ox 04/23/19 13:29 04/23/19 11:37 04/23/19 11:25 92 L 04/23/19 10:08 04/23/19 07:40 95 04/23/19 07:30 96 Weight 175 lb 3.2 oz - Physical Exam General: alert & oriented x3 HEENT: mucus membranes moist Neck: supple neck Cardiac: regular rate and rhythm, no murmur Lungs: normal breath sounds Neuro: grossly intact Abdomen: active bowel sounds Extremities: 1+ LE edema Skin: clear Musculoskeletal: no pain - Labs Result Diagrams: 04/23/19 03:29 04/23/19 03:29 Troponin/CKMB CK-MB (CK-2) 4.5 ng/mL (0-6.6) 04/20/19 13:42 Troponin I 29.463 ng/mL (< 0.028) H* 04/21/19 09:03 - Telemetry Sinus rhythms and dysrhythmias: sinus rhythm - Assessment/Plan Assessment/Plan: 1. Inferior STEMI 2. S/P Emergent CABG 3. LCx stent 9 yrs ago 4. HTN 5. HLP 6. HIV positive PLAN: - Aspirin and Statin for life - Continue BB at current dose. - BP borderline low to add CEI. - Increase PT as tolerated.
[2019-04-23] MEDS: Atorvastatin Calcium 40 MG TAB PO SCH (20:45)
[2019-04-24] MEDS: HYDROcodone/Acetaminophen 5/325 mg Tablet PO PRN ×3 (00:33→21:55)
[2019-04-24 04:58] LABS: #Eosinphils 0.2 thou/uL (0.0-0.7); #Lymphocytes 2.7 thou/uL (1.20-3.40); #Neutrophils 7.4 thou/uL (1.40-6.50); %Basophils 0.4 % (0.0-1.0); %Eosinophils 1.5 % (0.0-10.0); %Lymphocytes 24.1 % (21.0-51.0); %Monocytes 9.1 % (0.0-10.0); %Neutrophils 64.8 % (42.0-75.0); Hemoglobin 12.3 g/dL (14.0-18.0); Mean Corpuscular HGB CONC 32.9 g/dL (32.0-36.0); Mean Corpuscular Hemoglobin 29.1 pg (27.0-31.0); Mean Corpuscular Volume 88.7 fL (78.0-98.0); Mean Platelet Volume 7.8 fL (7.4-10.4); Platelet Count 180 thou/uL (130-400); Red Blood Cell (RBC) Count 4.21 mill/uL (4.70-6.10); White Blood Cell (WBC) Count 11.3 thou/uL (4.8-10.8)
[2019-04-24 05:27] LABS: ALT (SGPT) 28 U/L (8-55); AST (SGOT) 27 U/L (5-34); Albumin 3.2 g/dL (3.4-4.8); Alkaline Phosphatase 53 U/L (40-110); Anion Gap 10 mmol/L (10-20); BUN (Urea Nitrogen) 29 mg/dL (8.4-25.7); Bilirubin, Total 0.9 mg/dL (0.2-1.2); Calc. Creatinine Clearance 68 mL/min (70-130); Calcium 8.4 mg/dL (7.8-10.44); Carbon Dioxide 31 mmol/L (23-31); Chloride 99 mmol/L (98-107); Estimated GFR-MDRD 61; Globulin 2.4 g/dL (2.4-3.5); Glucose 116 mg/dL (83-110); Potassium 3.5 mmol/L (3.5-5.1); Protein, Total 5.6 g/dL (5.8-8.1); Sodium 136 mmol/L (136-145)
--- NOTE | 2019-04-24 08:37 | RAD ---
Chest AP view INDICATION: Status post CABG COMPARISON: April 23, 2019 FINDINGS: Lungs:Persistent bibasilar airspace opacities suspicious for atelectasis. There is a very stable tiny left apical pneumothorax. Cardiac silhouette:Mild cardiomegaly is stable. Midline sternotomy changes are stable. Pulmonary vasculature:Mild pulmonary vascular congestion remains. Pleural spaces:Small bilateral pleural effusions, left greater than right are stable. Upper abdomen:No abnormality seen. Osseous structures: No acute osseous abnormality. Additional findings:Left subclavian central venous catheter, left-sided thoracostomy tube and midline mediastinal drain is stable. IMPRESSION: Stable tiny left apical pneumothorax. Stable tubes and lines. Persistent bibasilar atelec tasis. Stable mild cardiomegaly with mild pulmonary vascular congestion and bilateral pleural effusions
[2019-04-24] MEDS: Carvedilol 6.25 MG TAB PO SCH ×2 (08:52→17:35)
[2019-04-24] MEDS: Gabapentin 300 MG CAP PO SCH ×3 (08:54→20:38)
[2019-04-24] MEDS: Aspirin Chewable 81 MG TAB PO SCH (08:54)
[2019-04-24] MEDS: Docusate 100 MG CAP PO SCH ×2 (08:55→20:38)
[2019-04-24] MEDS: Meloxicam 15 MG TAB PO SCH (08:55)
[2019-04-24] MEDS: Ezetimibe 10 MG TAB PO SCH (08:55)
[2019-04-24] MEDS: Furosemide 40 MG TAB PO SCH (08:55)
--- NOTE | 2019-04-24 15:59 | EKG ---
Test Reason : STAT Blood Pressure : / mmHG Vent. Rate : 100 BPM Atrial Rate : 100 BPM P-R Int : 184 ms QRS Dur : 072 ms QT Int : 318 ms P-R-T Axes : 048 014 042 degrees QTc Int : 410 ms Normal sinus rhythm Inferior infarct (cited on or before 20-APR-2019) Abnormal ECG When compared with ECG of 20-APR-2019 23:21, Sinus rhythm has replaced Junctional rhythm Confirmed by GRICELDA FROTS, SNaomi ([id number]) on 04/24/2019 3:59:14 PM Referred By: [facility] Confirmed By:DR. Lizz MADISON MD
--- NOTE | 2019-04-24 16:00 | EKG ---
Test Reason : STAT Blood Pressure : / mmHG Vent. Rate : 068 BPM Atrial Rate : 068 BPM P-R Int : 176 ms QRS Dur : 070 ms QT Int : 326 ms P-R-T Axes : 045 010 090 degrees QTc Int : 346 ms Sinus rhythm with Premature atrial complexes in a pattern of bigeminy Inferior infarct (cited on or before 20-APR-2019) Abnormal ECG When compared with ECG of 21-APR-2019 19:47, (Unconfirmed) Premature atrial complexes are now Present QT has shortened Confirmed by GRICELDA FROST, DR. Zamudio ([id number]) on 04/24/2019 3:59:36 PM Referred By: [facility] Confirmed By:DR. Lizz MADISON MD
[2019-04-24] MEDS: Atorvastatin Calcium 40 MG TAB PO SCH (20:38)
[2019-04-24] MEDS ORDERED: GENVOYA PO SCH (21:00)
[2019-04-25 05:04] LABS: #Basophils 0.1 thou/uL (0.0-0.2); #Eosinphils 0.2 thou/uL (0.0-0.7); #Lymphocytes 2.8 thou/uL (1.20-3.40); #Monocytes 0.8 thou/uL (0.11-0.59); #Neutrophils 5.7 thou/uL (1.40-6.50); %Basophils 0.5 % (0.0-1.0); %Eosinophils 1.8 % (0.0-10.0); %Lymphocytes 29.1 % (21.0-51.0); %Monocytes 8.6 % (0.0-10.0); Hemoglobin 12.6 g/dL (14.0-18.0); Mean Corpuscular HGB CONC 33.1 g/dL (32.0-36.0); Mean Corpuscular Hemoglobin 29.2 pg (27.0-31.0); Mean Corpuscular Volume 88.3 fL (78.0-98.0); Mean Platelet Volume 7.9 fL (7.4-10.4); Platelet Count 248 thou/uL (130-400); RBC Distribution Width 14.1 % (11.5-14.5); Red Blood Cell (RBC) Count 4.33 mill/uL (4.70-6.10); White Blood Cell (WBC) Count 9.5 thou/uL (4.8-10.8)
[2019-04-25 05:22] LABS: Anion Gap 12 mmol/L (10-20); BUN (Urea Nitrogen) 27 mg/dL (8.4-25.7); Calc. Creatinine Clearance 74 mL/min (70-130); Calcium 8.9 mg/dL (7.8-10.44); Carbon Dioxide 31 mmol/L (23-31); Chloride 98 mmol/L (98-107); Estimated GFR-MDRD 67; Glucose 125 mg/dL (83-110); Potassium 3.6 mmol/L (3.5-5.1); Sodium 137 mmol/L (136-145)
--- NOTE | 2019-04-25 07:39 | DIS ---
DATE OF ADMISSION: 04/20/2019 DATE OF DISCHARGE: 04/25/2019 PRINCIPAL DIAGNOSIS: Coronary artery disease with ST-elevation myocardial infarction. SECONDARY DIAGNOSES: 1. Human immunodeficiency virus positivity. 2. Hypertension. 3. Hypercholesterolemia. 4. Osteoarthritis. PROCEDURES PERFORMED: Cardiac catheterization on 04/20/2019. Coronary artery bypass grafting x4 with left internal mammary artery to the distal LAD and separate reverse greater saphenous vein graft from aorta to the diagonal, the second obtuse marginal, and the posterior descending artery on 04/20/2019. HISTORY OF PRESENT ILLNESS AND HOSPITAL COURSE: The patient is a 73-year-old man with a known history of coronary artery disease, having undergone PCI about 9 years ago. He had done well until recently. About a week prior to his presentation, he had a 2-to 3-hour episode of chest pain and then on the morning of presentation, he had another episode that was associated with shortness of breath, nausea, vomiting, and diuresis. The symptoms were severe enough and protracted enough to prompt seeking medical attention. He was found to have inferior ST elevation that waxed and waned with the intensity of his pain. Cardiac catheterization demonstrated minimal distal left main disease, but proximal LAD disease as well as a subtotal lesion in a large obtuse marginal and thrombus associated with this very high-grade lesion in the very proximal right coronary. He also had a high-grade lesion in the distal right. He had low normal LVEF with an EDP of 12. Because of the pattern of disease and his ongoing chest pain, he was taken urgently to the OR for surgical revascularization. He had an uncomplicated postoperative course. He was extubated only a few hours postop and was weaned off his Levophed. He was diuresed. Beta-blockade was initiated and gradually increased. RITESH inhibition was deferred because of those blood pressures. Today on postoperative day 5, he is doing well and being discharged home on Coreg 6.25 mg b.i.d., Lipitor 40 mg at bedtime, aspirin a day, and his normal home medications. Job ID: [id number]
[2019-04-25] MEDS: Gabapentin 300 MG CAP PO SCH (07:53)
[2019-04-25] MEDS: Meloxicam 15 MG TAB PO SCH (07:54)
[2019-04-25] MEDS: Ezetimibe 10 MG TAB PO SCH (07:54)
[2019-04-25] MEDS: Carvedilol 6.25 MG TAB PO SCH (07:54)
[2019-04-25] MEDS: Aspirin Chewable 81 MG TAB PO SCH (07:54)
[2019-04-25] MEDS: Docusate 100 MG CAP PO SCH (07:55)
[2019-04-25] MEDS ORDERED: GENVOYA PO SCH (09:00)
[2019-04-25 11:15] VITALS: BP 120/66; TEMP 97.7
== END 2019-04-25 13:33 | disposition home or self-care (01) | DRG 234 ==
LOC: ERS 13:26 → CCL 18:25 → CCU 23:20 → 2NO 04-22 14:06
PROVIDERS: ADMIT Internal Medicine Cardiovascular Disease; ATTEND Internal Medicine Cardiovascular Disease
PROC: 4A023N7 Measurement of Cardiac Sampling and Pressure, Left Heart, Percutaneous Approach (ICD-10-PCS; principal; 2019-04-20)
PROC: 02100Z9 Bypass Coronary Artery, One Artery from Left Internal Mammary, Open Approach (ICD-10-PCS; 2019-04-20)
PROC: 021209W Bypass Coronary Artery, Three Arteries from Aorta with Autologous Venous Tissue, Open Approach (ICD-10-PCS; 2019-04-20)
PROC: 06BQ4ZZ Excision of Left Saphenous Vein, Percutaneous Endoscopic Approach (ICD-10-PCS; 2019-04-20)
PROC: B2151ZZ Fluoroscopy of Left Heart using Low Osmolar Contrast (ICD-10-PCS; 2019-04-20)
PROC: B2111ZZ Fluoroscopy of Multiple Coronary Arteries using Low Osmolar Contrast (ICD-10-PCS; 2019-04-20)
PROC: 5A1221Z Performance of Cardiac Output, Continuous (ICD-10-PCS; 2019-04-20)
DX: I21.19 ST elevation (STEMI) myocardial infarction involving other coronary artery of inferior wall (principal); I25.10 Atherosclerotic heart disease of native coronary artery without angina pectoris; E78.00 Pure hypercholesterolemia, unspecified; I10 Essential (primary) hypertension; Z21 Asymptomatic human immunodeficiency virus [HIV] infection status; G62.9 Polyneuropathy, unspecified; M19.90 Unspecified osteoarthritis, unspecified site; K21.9 Gastro-esophageal reflux disease without esophagitis; Z79.82 Long term (current) use of aspirin; Z79.899 Other long term (current) drug therapy; Z87.891 Personal history of nicotine dependence; Z95.5 Presence of coronary angioplasty implant and graft
CPT/HCPCS: 36415; 36416; 36430; 71045; 80048; 80053; 80061; 82550; 82553; 82805; 83036; 84484; 85025; 85347; 85610; 85730; 86850; 86900; 86901; 93005; 93010; 93458; 93798; 94002; 94003; 94150; 96374; 99152; C1769; C1887; J0690; J1644; J1815; J1940; J2001; J2250; J2270; J2370; J2405; J2440; J2704; J2720; J3010; J3370; J3475; J3480; J3490; J7050; P9016; P9045; Q9967; S0017

== ENCOUNTER 2021-11-27 09:47 | Outpatient (CLI) | payer MEDICARE | END 2021-11-27 09:48 | disposition home or self-care (01) | LOC: SCSCT 09:47 | PROVIDERS: ATTEND Surgery | DX: M48.062 Spinal stenosis, lumbar region with neurogenic claudication (principal); M47.816 Spondylosis without myelopathy or radiculopathy, lumbar region; M43.16 Spondylolisthesis, lumbar region; N20.0 Calculus of kidney | CPT/HCPCS: 72131 ==

== ENCOUNTER 2022-02-19 09:48 | Outpatient (CLI) | payer OTHER | END 2022-02-19 09:49 | disposition home or self-care (01) | LOC: LABBT 09:48 | PROVIDERS: ATTEND Surgery | DX: Z01.812 Encounter for preprocedural laboratory examination (principal); M43.16 Spondylolisthesis, lumbar region; M48.062 Spinal stenosis, lumbar region with neurogenic claudication; Z20.822 Contact with and (suspected) exposure to COVID-19 | CPT/HCPCS: 80048; 85027; 85610; 85730; 86850; 86900; 86901; 87811 ==

== ENCOUNTER 2022-02-24 05:47 | Inpatient (IN) | payer OTHER ==
[2022-02-19 11:51] LABS: Mean Corpuscular Hemoglobin 30.1 pg (27.0-33.0); Mean Corpuscular Volume 91.3 fl (81.2-95.1); Mean Platelet Volume 9.4 fl (7.4-10.4); Platelet Count 267 10x3/uL (150-450); RBC Distribution Width 15.6 % (11.5-14.5); Red Blood Cell (RBC) Count 5.64 10x6/uL (4.32-5.72); White Blood Cell (WBC) Count 6.5 10x3/uL (3.5-10.5)
[2022-02-19 11:59] LABS: PTT 25.4 sec (22.0-33.0); Prothrombin Time 10.5 sec (9.5-12.1)
[2022-02-19 12:05] LABS: Anion Gap 17 mmol/L (10-20); BUN (Urea Nitrogen) 21 mg/dL (8.4-25.7); Calc. Creatinine Clearance 0 mL/min (70-130); Calcium 9.7 mg/dL (7.8-10.44); Carbon Dioxide 27 mmol/L (23-31); Chloride 101 mmol/L (98-107); Estimated GFR 65; Glucose 76 mg/dL (83-110); Potassium 3.9 mmol/L (3.5-5.1); Sodium 141 mmol/L (136-145)
[2022-02-24] MEDS ORDERED: Thrombin 5000 UNITS/5 ML VIAL ONE ×6 (06:41→11:04)
[2022-02-24] MEDS ORDERED: Esmolol 100 MG/10 ML VIAL ONE (07:00)
[2022-02-24] MEDS ORDERED: PROPOFOL 200 MG/20 ML VIAL ONE (07:00)
[2022-02-24] MEDS ORDERED: Lidocaine 1% MPF 2 ML VIAL ONE (07:00)
[2022-02-24] MEDS ORDERED: Dexamethasone 20 MG/5 ML VIAL ONE (07:00)
[2022-02-24] MEDS ORDERED: NEOSTIGMINE 3 MG/3 ML SYR 3 MG/3 ML SYRINGE ONE (07:00)
[2022-02-24] MEDS ORDERED: Glycopyrrolate 0.2 MG/ML 5 ML SYRINGE ONE (07:00)
[2022-02-24] MEDS ORDERED: Ondansetron PF 4 MG/2 ML Vial ONE (07:00)
[2022-02-24] MEDS ORDERED: Rocuronium Bromide 10 MG/ML (10ML VIAL) ONE (07:00)
[2022-02-24] MEDS ORDERED: HYDROmorphone 2 MG/ML VIAL ONE ×2 (07:02→10:44)
[2022-02-24] MEDS ORDERED: Propofol 1,000 MG/100 ML VIAL IV ONE ×2 (07:03→09:23)
[2022-02-24] MEDS ORDERED: Sodium Chloride 0.9% 100 ML ONE (07:13)
[2022-02-24] MEDS ORDERED: CEFAZOLIN 2 GM VIAL ONE (07:13)
[2022-02-24] MEDS ORDERED: Neomycin-Polymyxin 1 ML AMP ONE ×2 (08:11→11:04)
[2022-02-24] MEDS ORDERED: Acetaminophen 325 MG TAB PO PRN (13:12)
[2022-02-24] MEDS ORDERED: diphenhydrAMINE 25 MG CAP PO PRN (13:12)
[2022-02-24] MEDS ORDERED: HYDROcodone/Acetaminophen 7.5/325 mg Tablet PO PRN (13:12)
[2022-02-24] MEDS ORDERED: Ondansetron PF 4 MG/2 ML Vial IVP PRN (13:12)
[2022-02-24] MEDS ORDERED: Fentanyl 100 MCG/2 ML VIAL SLOW IVP PRN (13:12)
[2022-02-24] MEDS ORDERED: Diazepam 5 MG TAB PO PRN (13:14)
[2022-02-24] MEDS ORDERED: hydrALAZINE 20 MG/ML VIAL SLOW IVP PRN (13:16)
[2022-02-24] MEDS ORDERED: Naloxone HCl 0.4 mg/ml Vial ONE (13:55)
[2022-02-24] MEDS ORDERED: Gabapentin 300 MG CAP PO SCH (16:00)
[2022-02-24 16:44] VITALS: BMI 26.0
[2022-02-24] MEDS: Sodium Chloride 0.9% 1,000 ML IV SCH (19:42)
[2022-02-24] MEDS: Ketorolac Tromethamine 30 MG/ML VIAL IVP PRN (19:44)
[2022-02-24] MEDS: CEFAZOLIN 2 GM in Sodium Chloride 0.9% 100 ML IVPB SCH (19:47)
[2022-02-24] MEDS: Hydrochlorothiazide 25 MG TAB PO SCH (20:29)
[2022-02-24] MEDS: Ezetimibe 10 MG TAB PO SCH (20:29)
[2022-02-24] MEDS: Atorvastatin Calcium 40 MG TAB PO SCH (20:29)
[2022-02-24] MEDS: Gabapentin 300 MG CAP PO SCH (20:29)
[2022-02-24] MEDS: Carvedilol 6.25 MG TAB PO SCH (20:30)
[2022-02-25] MEDS: Ketorolac Tromethamine 30 MG/ML VIAL IVP PRN (00:06)
[2022-02-25] MEDS: HYDROcodone/Acetaminophen 7.5/325 mg Tablet PO PRN ×3 (02:49→14:55)
[2022-02-25] MEDS: CEFAZOLIN 2 GM in Sodium Chloride 0.9% 100 ML IVPB SCH ×3 (04:27→20:30)
[2022-02-25 05:42] LABS: #Lymphocytes 1.6 thou/uL (1.20-3.40); #Neutrophils 8.9 thou/uL (1.40-6.50); %Basophils 0.1 % (0.0-1.0); %Eosinophils 0.1 % (0.0-10.0); %Lymphocytes 14.2 % (21.0-51.0); %Monocytes 8.4 % (0.0-10.0); %Neutrophils 77.2 % (42.0-75.0); Hemoglobin 11.9 g/dL (14.0-18.0); Mean Corpuscular HGB CONC 32.7 g/dL (32.0-36.0); Mean Corpuscular Hemoglobin 31.3 pg (27.0-31.0); Mean Corpuscular Volume 95.8 fL (78.0-98.0); Mean Platelet Volume 7.5 fL (7.4-10.4); Platelet Count 216 thou/uL (130-400); RBC Distribution Width 14.8 % (11.5-14.5); Red Blood Cell (RBC) Count 3.82 mill/uL (4.70-6.10); White Blood Cell (WBC) Count 11.5 thou/uL (4.8-10.8)
[2022-02-25] MEDS: Sodium Chloride 0.9% 1,000 ML IV SCH ×2 (05:49→15:21)
[2022-02-25 06:04] LABS: Anion Gap 12 mmol/L (10-20); BUN (Urea Nitrogen) 28 mg/dL (8.4-25.7); Calc. Creatinine Clearance 57 mL/min (70-130); Calcium 8.2 mg/dL (7.8-10.44); Carbon Dioxide 26 mmol/L (23-31); Chloride 103 mmol/L (98-107); Estimated GFR 59; Glucose 129 mg/dL (83-110); Potassium 3.6 mmol/L (3.5-5.1); Sodium 137 mmol/L (136-145)
[2022-02-25] MEDS: Gabapentin 300 MG CAP PO SCH ×3 (08:47→20:32)
[2022-02-25] MEDS: Hydrochlorothiazide 25 MG TAB PO SCH (20:32)
[2022-02-25] MEDS: Ezetimibe 10 MG TAB PO SCH (20:32)
[2022-02-25] MEDS: Carvedilol 6.25 MG TAB PO SCH (20:32)
[2022-02-25] MEDS: Atorvastatin Calcium 40 MG TAB PO SCH (20:32)
[2022-02-26] MEDS: CEFAZOLIN 2 GM in Sodium Chloride 0.9% 100 ML IVPB SCH ×3 (03:32→20:01)
[2022-02-26] MEDS: HYDROcodone/Acetaminophen 7.5/325 mg Tablet PO PRN ×3 (03:33→18:56)
[2022-02-26] MEDS: Sodium Chloride 0.9% 1,000 ML IV SCH ×2 (03:38→16:10)
[2022-02-26 05:32] LABS: #Eosinphils 0.1 thou/uL (0.0-0.7); #Lymphocytes 2.7 thou/uL (1.20-3.40); #Monocytes 0.9 thou/uL (0.11-0.59); #Neutrophils 6.4 thou/uL (1.40-6.50); %Basophils 0.4 % (0.0-1.0); %Eosinophils 0.7 % (0.0-10.0); %Lymphocytes 26.6 % (21.0-51.0); %Monocytes 9.3 % (0.0-10.0); %Neutrophils 63.1 % (42.0-75.0); Hemoglobin 10.8 g/dL (14.0-18.0); Mean Corpuscular HGB CONC 33.1 g/dL (32.0-36.0); Mean Corpuscular Hemoglobin 32.1 pg (27.0-31.0); Mean Platelet Volume 7.4 fL (7.4-10.4); Platelet Count 192 thou/uL (130-400); RBC Distribution Width 14.9 % (11.5-14.5); Red Blood Cell (RBC) Count 3.35 mill/uL (4.70-6.10); White Blood Cell (WBC) Count 10.1 thou/uL (4.8-10.8)
[2022-02-26] MEDS: Gabapentin 300 MG CAP PO SCH ×3 (09:52→20:02)
[2022-02-26] MEDS ORDERED: [UNRECOGNIZED DRUG - OTHER] PO SCH (16:15)
[2022-02-26] MEDS: [UNRECOGNIZED DRUG - OTHER] PO SCH ×2 (16:21→16:47)
[2022-02-26] MEDS: Carvedilol 6.25 MG TAB PO SCH (20:01)
[2022-02-26] MEDS: Atorvastatin Calcium 40 MG TAB PO SCH (20:01)
[2022-02-26] MEDS: Ezetimibe 10 MG TAB PO SCH (20:01)
[2022-02-26] MEDS: Hydrochlorothiazide 25 MG TAB PO SCH (20:02)
[2022-02-27] MEDS: HYDROcodone/Acetaminophen 7.5/325 mg Tablet PO PRN ×3 (01:13→20:13)
[2022-02-27] MEDS: CEFAZOLIN 2 GM in Sodium Chloride 0.9% 100 ML IVPB SCH ×3 (04:11→20:17)
[2022-02-27] MEDS: Sodium Chloride 0.9% 1,000 ML IV SCH ×2 (06:34→21:17)
[2022-02-27] MEDS: Gabapentin 300 MG CAP PO SCH ×3 (08:19→20:14)
[2022-02-27] MEDS ORDERED: tiZANidine HCl 4 MG TAB PO PRN (08:42)
[2022-02-27] MEDS ORDERED: [UNRECOGNIZED DRUG - OTHER] PO SCH (09:00)
[2022-02-27] MEDS: Atorvastatin Calcium 40 MG TAB PO SCH (20:14)
[2022-02-27] MEDS: Hydrochlorothiazide 25 MG TAB PO SCH (20:14)
[2022-02-27] MEDS: Ezetimibe 10 MG TAB PO SCH (20:14)
[2022-02-27] MEDS: Carvedilol 6.25 MG TAB PO SCH (20:14)
[2022-02-27] MEDS: [UNRECOGNIZED DRUG - OTHER] PO SCH (20:16)
[2022-02-28] MEDS: CEFAZOLIN 2 GM in Sodium Chloride 0.9% 100 ML IVPB SCH ×2 (04:36→12:12)
[2022-02-28] MEDS: Polyethylene Glycol 3350 17 GM Packet PO PRN (10:18)
[2022-02-28] MEDS: Gabapentin 300 MG CAP PO SCH ×3 (10:18→20:34)
[2022-02-28] MEDS: Senokot S 8.6-50 MG TAB PO PRN (10:19)
[2022-02-28] MEDS: HYDROcodone/Acetaminophen 7.5/325 mg Tablet PO PRN ×3 (10:28→20:45)
[2022-02-28] MEDS: Sodium Chloride 0.9% 1,000 ML IV SCH ×2 (12:12→22:08)
[2022-02-28] MEDS: Cephalexin 250 MG CAP PO SCH ×2 (17:29→20:34)
[2022-02-28] MEDS: Carvedilol 6.25 MG TAB PO SCH (20:35)
[2022-02-28] MEDS: Atorvastatin Calcium 40 MG TAB PO SCH (20:36)
[2022-02-28] MEDS: Hydrochlorothiazide 25 MG TAB PO SCH (20:36)
[2022-02-28] MEDS: Ezetimibe 10 MG TAB PO SCH (20:36)
[2022-02-28] MEDS: [UNRECOGNIZED DRUG - OTHER] PO SCH (20:38)
[2022-03-01] MEDS: HYDROcodone/Acetaminophen 7.5/325 mg Tablet PO PRN ×4 (00:57→22:55)
[2022-03-01] MEDS: Gabapentin 300 MG CAP PO SCH ×3 (10:38→20:37)
[2022-03-01] MEDS: Cephalexin 250 MG CAP PO SCH ×4 (10:39→20:42)
[2022-03-01] MEDS: Sodium Chloride 0.9% 1,000 ML IV SCH (13:03)
[2022-03-01] MEDS: Acetaminophen/Codeine 30-300mg Tablet PO PRN ×2 (13:08→20:40)
[2022-03-01] MEDS: Senokot S 8.6-50 MG TAB PO PRN (17:12)
[2022-03-01] MEDS: Polyethylene Glycol 3350 17 GM Packet PO PRN (17:12)
[2022-03-01] MEDS: Atorvastatin Calcium 40 MG TAB PO SCH (20:38)
[2022-03-01] MEDS: Carvedilol 6.25 MG TAB PO SCH (20:38)
[2022-03-01] MEDS: Hydrochlorothiazide 25 MG TAB PO SCH (20:40)
[2022-03-01] MEDS: Ezetimibe 10 MG TAB PO SCH (20:40)
[2022-03-01] MEDS: [UNRECOGNIZED DRUG - OTHER] PO SCH (20:42)
[2022-03-02] MEDS: Sodium Chloride 0.9% 1,000 ML IV SCH (01:57)
[2022-03-02] MEDS: Acetaminophen/Codeine 30-300mg Tablet PO PRN (04:38)
[2022-03-02 08:41] VITALS: BP 122/73; TEMP 98.2
[2022-03-02] MEDS: Senokot S 8.6-50 MG TAB PO PRN (10:12)
[2022-03-02] MEDS: Gabapentin 300 MG CAP PO SCH (10:12)
== END 2022-03-02 10:35 | disposition home or self-care (01) | DRG 455 ==
LOC: SDC 05:47 → MSONC 16:29 → OBSVTOIN 02-26 07:49
PROVIDERS: ADMIT Surgery; ATTEND Surgery
PROC: 0SG00AJ Fusion of Lumbar Vertebral Joint with Interbody Fusion Device, Posterior Approach, Anterior Column, Open Approach (ICD-10-PCS; principal; 2022-02-24)
PROC: 0SG0071 Fusion of Lumbar Vertebral Joint with Autologous Tissue Substitute, Posterior Approach, Posterior Column, Open Approach (ICD-10-PCS; 2022-02-24)
PROC: 0SG30AJ Fusion of Lumbosacral Joint with Interbody Fusion Device, Posterior Approach, Anterior Column, Open Approach (ICD-10-PCS; 2022-02-24)
PROC: 0SG3071 Fusion of Lumbosacral Joint with Autologous Tissue Substitute, Posterior Approach, Posterior Column, Open Approach (ICD-10-PCS; 2022-02-24)
PROC: 01NB0ZZ Release Lumbar Nerve, Open Approach (ICD-10-PCS; 2022-02-24)
PROC: 3E0U0GB Introduction of Recombinant Bone Morphogenetic Protein into Joints, Open Approach (ICD-10-PCS; 2022-02-24)
DX: M48.062 Spinal stenosis, lumbar region with neurogenic claudication (principal); Z20.822 Contact with and (suspected) exposure to COVID-19; M71.38 Other bursal cyst, other site; M47.26 Other spondylosis with radiculopathy, lumbar region; Z28.21 Immunization not carried out because of patient refusal; Z79.82 Long term (current) use of aspirin; Z87.891 Personal history of nicotine dependence
CPT/HCPCS: 36415; 76000; 80048; 85025; 85027; 85610; 85730; 86850; 86900; 86901; 87811; 93970; 96374; 96375; 96376; C1713; C1768; C1776; G0378; J0690; J1100; J1170; J1885; J2310; J2405; J2704; J3370; J3490

== ENCOUNTER 2022-04-06 10:22 | Outpatient (CLI) | payer MEDICARE, OTHER | END 2022-04-06 10:23 | disposition home or self-care (01) | LOC: SCSRAD 10:22 | PROVIDERS: ATTEND Surgery | DX: M47.26 Other spondylosis with radiculopathy, lumbar region (principal); Z98.890 Other specified postprocedural states | CPT/HCPCS: 72100 ==

== ENCOUNTER 2022-11-02 07:13 | Emergency (ER) | payer OTHER ==
[2022-11-02 08:12] LABS: #Monocytes 0.6 thou/uL (0.11-0.59); %Basophils 0.2 % (0.0-1.0); %Lymphocytes 3.6 % (21.0-51.0); Hemoglobin 11.3 g/dL (14.0-18.0); Mean Corpuscular HGB CONC 30.5 g/dL (32.0-36.0); Mean Corpuscular Hemoglobin 23.7 pg (27.0-31.0); Mean Corpuscular Volume 77.6 fl (78.0-98.0); Mean Platelet Volume 9.5 fL (7.4-10.4); Platelet Count 252 10x3/uL (130-400); RBC Distribution Width 17.9 % (11.5-14.5); Red Blood Cell (RBC) Count 4.77 mill/uL (4.70-6.10); White Blood Cell (WBC) Count 15.4 10x3/uL (4.8-10.8)
[2022-11-02 08:33] LABS: Anion Gap 13 mmol/L (10-20); BUN (Urea Nitrogen) 18 mg/dL (8.4-25.7); Calc. Creatinine Clearance 0 mL/min (70-130); Calcium 9.4 mg/dL (7.8-10.44); Carbon Dioxide 23 mmol/L (23-31); Chloride 104 mmol/L (98-107); Estimated GFR 80; Glucose 127 mg/dL (83-110); Potassium 3.4 mmol/L (3.5-5.1); Sodium 137 mmol/L (136-145)
[2022-11-02 09:09] LABS: Bacteria/HPF 2+ HPF (None Seen); Bilirubin Negative (Negative); Blood, Urine Negative (Negative); CAUTI Indications for Culture Dysuria,urgency,freq; Clarity Turbid (Clear); Glucose, Urine (Dipstick) 200 mg/dL (Negative); Ketone, Urine 10 mg/dL (Negative); Leukocyte 75 Leu/uL (Negative); Nitrite 1+ (Negative); Protein, Urine (Dipstick) 50 mg/dL (Neg-Trace); RBC/HPF 0-3 HPF (0-3); Specific Gravity, Urine 1.028 (1.002-1.036); Squamous Epithelial None Seen HPF (0-3); WBC/HPF 21-50 HPF (0-3); pH, Urine 6.5 (5.0-9.0)
[2022-11-02 09:11] LABS: Urine Culture Reflex Yes Yes
[2022-11-02] MEDS ORDERED: cefTRIAXone (ROCEPHIN) 1 GM VIAL ONE (10:04)
[2022-11-02] MEDS ORDERED: Nitrofurantoin Macrocrystal 50 MG CAP PO SCH (10:30)
== END 2022-11-02 10:41 | disposition home or self-care (01) ==
LOC: ERS 07:13
DX: N39.0 Urinary tract infection, site not specified (principal); M54.50 Low back pain, unspecified; D72.829 Elevated white blood cell count, unspecified; K21.9 Gastro-esophageal reflux disease without esophagitis; I10 Essential (primary) hypertension; Z79.82 Long term (current) use of aspirin; Z79.899 Other long term (current) drug therapy
CPT/HCPCS: 80048; 81001; 85025; 87077; 87086; 87186; 96365; J0696

== ENCOUNTER 2023-02-24 09:34 | Emergency (ER) | payer OTHER ==
[2023-02-24 10:58] LABS: #Eosinphils 0.1 thou/uL (0.0-0.7); #Monocytes 0.4 thou/uL (0.11-0.59); #Neutrophils 3.4 thou/uL (1.40-6.50); %Basophils 0.8 % (0.0-1.0); %Lymphocytes 23.3 % (21.0-51.0); %Monocytes 7.3 % (0.0-10.0); %Neutrophils 67.4 % (42.0-75.0); Hematocrit 40.2 % (42.0-52.0); Hemoglobin 12.3 g/dL (14.0-18.0); Mean Corpuscular HGB CONC 30.6 g/dL (32.0-36.0); Mean Corpuscular Hemoglobin 25.8 pg (27.0-31.0); Mean Corpuscular Volume 84.3 fl (78.0-98.0); Platelet Count 237 10x3/uL (130-400); RBC Distribution Width 17.2 % (11.5-14.5); Red Blood Cell (RBC) Count 4.77 mill/uL (4.70-6.10); White Blood Cell (WBC) Count 5.1 10x3/uL (4.8-10.8)
[2023-02-24 11:21] LABS: Bilirubin Negative (Negative); Blood, Urine Negative (Negative); Glucose, Urine (Dipstick) Negative (Negative); Ketone, Urine Negative (Negative); Leukocyte Negative (Negative); Nitrite Negative (Negative); Protein, Urine (Dipstick) Negative (Neg-Trace); Urobilinogen 0.2 mg/dL (Less than 2); pH, Urine 6.5 (5.0-9.0)
[2023-02-24 11:23] LABS: Clarity Clear (Clear); Specific Gravity, Urine 1.008 (1.002-1.036)
[2023-02-24 11:26] LABS: Bacteria/HPF None Seen HPF (None Seen); CAUTI Indications for Culture Pelvic or flank pain; RBC/HPF None Seen HPF (0-3); Squamous Epithelial None Seen HPF (0-3); WBC/HPF None Seen HPF (0-3)
[2023-02-24 11:27] LABS: Urine Culture Reflex No No
[2023-02-24 11:28] LABS: ALT (SGPT) 15 U/L (8-55); AST (SGOT) 18 U/L (5-34); Albumin 4.2 g/dL (3.4-4.8); Alkaline Phosphatase 81 U/L (40-110); Anion Gap 14 mmol/L (10-20); BUN (Urea Nitrogen) 18 mg/dL (8.4-25.7); Bilirubin, Total 0.6 mg/dL (0.2-1.2); Calc. Creatinine Clearance 0 mL/min (70-130); Calcium 9.4 mg/dL (7.8-10.44); Carbon Dioxide 27 mmol/L (23-31); Chloride 102 mmol/L (98-107); Estimated GFR 78; Globulin 2.7 g/dL (2.4-3.5); Glucose 93 mg/dL (83-110); Potassium 3.3 mmol/L (3.5-5.1); Protein, Total 6.9 g/dL (5.8-8.1); Sodium 140 mmol/L (136-145)
[2023-02-24] MEDS ORDERED: Potassium Chloride 20 MEQ TAB ONE (12:28)
== END 2023-02-24 12:34 | disposition home or self-care (01) ==
LOC: ERS 09:34
DX: M54.50 Low back pain, unspecified (principal); R25.1 Tremor, unspecified; I10 Essential (primary) hypertension; G62.9 Polyneuropathy, unspecified; M19.90 Unspecified osteoarthritis, unspecified site; K21.9 Gastro-esophageal reflux disease without esophagitis; B20 Human immunodeficiency virus [HIV] disease; Z79.82 Long term (current) use of aspirin; Z79.899 Other long term (current) drug therapy
CPT/HCPCS: 36415; 72131; 80053; 81001; 85025